=== PATIENT | female | born 1960 | race Caucasian/White ===

== ENCOUNTER 2018-11-06 09:14 | Day surgery (SDC) | payer BC ==
[~2018-11-06 09:14] MED LIST: Lactated Ringers 1,000 ML IV SCH; Lidocaine 1%/Sod Bicarbonate in NS 8.4% 1 ML Syringe IDERM PRN; Sodium Chloride 0.9% 10 ML Syringe FLUSH PRN
--- NOTE | 2018-11-06 09:39 | PCM.PREANE ---
Preanesthetic Assessment - Anesthesia/Transfusion/Family Hx Anesthesia History: Prior Anesthesia Reaction (nausea) Family History of Anesthesia Reaction: No Transfusion History: No Prior Transfusion(s) - Review of Systems General: No Symptoms Pulmonary: No Symptoms Cardiovascular: No Symptoms Gastrointestinal: No Symptoms Neurological: No Symptoms Other: Reports: Thyroid Problems - Physical Assessment NPO Status Date: 11/05/18 NPO Status Time: 00:00 Pulse: 83 O2 Sat by Pulse Oximetry: 96 Respiratory Rate: 16 Blood Pressure: 147/74 Temperature: 36.8 C Height: 1.65 m Weight: 76.385 kg ASA Class: 2 Mental Status: Alert & Oriented x3 Airway Class: Mallampati = 3 Dentition: Reports: Normal Dentition Thyro-Mental Finger Breadths: 3 Mouth Opening Finger Breadths: 2 ROM/Head Extension: Full Lungs: Clear to Auscultation, Normal Respiratory Effort Cardiovascular: Regular Rate, Regular Rhythm - Allergies Allergies/Adverse Reactions: Allergies Allergy/AdvReac Type Severity Reaction Status Date / Time No Known Allergies Allergy Verified 11/05/18 10:35 - Blood Blood Available: No Product(s) Available: None - Anesthesia Plan Pre-Op Medication Ordered: None - Acknowledgements Anesthesia Type Planned: MAC Pt an Appropriate Candidate for the Planned Anesthesia: Yes Alternatives and Risks of Anesthesia Discussed w Pt/Guardian: Yes Pt/Guardian Understands and Agrees with Anesthesia Plan: Yes PreAnesthesia Questionnaire HEENT History: Reports: Sinusitis, Other (See Below) Other HEENT History: Impacted cerumen Cardiovascular History: Reports: High Cholesterol, Hypertension Respiratory History: Reports: Other (See Below) Other Respiratory History: Recurrent cough Gastrointestinal History: Reports: Cholelithiasis, GERD, Other (See Below) Other Gastrointestinal History: Fatty liver disease, elevated liver function tests Genitourinary History: Reports: None [employer]NA[employer] History: Reports: Other OB/BYN History: tubal ligation, D&C Musculoskeletal History: Reports: Other (See Below) Other Musculoskeletal History: Right hand mallet finger, left finger fracture, left shoulder pain, left rotator cuff tendonitis Neurological History: Reports: Other (See Below) Other Neuro History: Herniated disk Psychiatric History: Reports: None Endocrine/Metabolic History: Reports: Diabetes, Type II, Hypothyroidism Hematologic History: Reports: None Immunologic History: Reports: None Oncologic (Cancer) History: Reports: None Dermatologic History: Reports: Other (See Below) Other Dermatologic History: Rash, spongiotic psoriaform dermatitis, tinea corposis - Infectious Disease History Infectious Disease History: Reports: None - Past Surgical History Head Surgeries/Procedures: Reports: None HEENT Surgical History: Reports: None Cardiovascular Surgical History: Reports: None Respiratory Surgical History: Reports: None GI Surgical History: Reports: None Female Surgical History: Reports: D&C, Tubal Ligation Endocrine Surgical History: Reports: None Neurological Surgical History: Reports: Lumbar Spine Musculoskeletal Surgical History: Reports: None Oncologic Surgical History: Reports: None Dermatological Surgical History: Reports: None - SUBSTANCE USE Smoking Status *Q: Former Smoker Tobacco Use Within Last Twelve Months: No Second Hand Smoke Exposure: No Recreational Drug Use History: No - HOME MEDS Home Medications: Home Meds Irbesartan/Hydrochlorothiazide [Irbesartan-Hctz 300-12.5 mg Tb] 1 tab PO DAILY 11/23/15 [History] Benzonatate 200 mg PO TID PRN 11/05/18 [History] Clobetasol [Clobetasol Propionate 0.05%] 1 applic TOP DAILY 11/05/18 [History] Fluticasone Propionate [Flonase] 1 spray NS DAILY PRN 11/05/18 [History] Levothyroxine 112 mcg PO ACBREAKFAST 11/05/18 [History] Loratadine [Claritin] 10 mg PO DAILY PRN 11/05/18 [History] Triamcinolone Acetonide [Triamcinolone Acetonide 0.1% Crm] 1 applic TOP DAILY [History] atorvaSTATin [Lipitor] 10 mg PO DAILY 11/05/18 [History] - CURRENT (IN HOUSE) MEDS Current Meds: Current Medications Lactated Ringer's (Ringers, Lactated) 1,000 mls @ 125 mls/hr IV ASDIRECTED ROEL Stop: 11/06/18 23:00 Lidocaine/Sodium Bicarbonate (Buffered Lidocaine 1% In Ns 8.4%) 0.25 ml IDERM ONETIME PRN PRN Reason: Prior to IV Start Stop: 11/06/18 18:00 Sodium Chloride (Saline Flush) 10 ml FLUSH ASDIRECTED PRN PRN Reason: Keep Vein Open Stop: 11/06/18 18:00
[2018-11-06] MEDS ORDERED: Propofol 200 MG/20 ML SDV ONE ×3 (10:04→10:58)
[2018-11-06] MEDS ORDERED: Lidocaine 1% 4 ML ONE (10:04)
[2018-11-06] MEDS ORDERED: fentaNYL 100 MCG/2 ML SDV ONE (10:18)
[2018-11-06 11:33] VITALS: BP 128/65
--- NOTE | 2018-11-06 13:47 | OR ---
DATE OF OPERATION: 11/06/2018 SURGEON: José Rey MD PREOPERATIVE DIAGNOSIS: Positive Cologuard, DNA screen. POSTOPERATIVE DIAGNOSIS: 1. Positive Cologuard, DNA screen. 2. Multiple polyps too numerous to count. All of these appear to be hyperplastic in nature. OPERATION PERFORMED: Diagnostic colonoscopy and snare polypectomy, biopsy forceps polypectomy. FINDINGS: Polyps too numerous to count. All of these appear to be hyperplastic. She had an excellent bowel prep. ANESTHESIA: Monitored anesthesia care. ESTIMATED BLOOD LOSS: Minimal. COMPLICATIONS: None. DISPOSITION: Stable at the end of procedure. PATHOLOGY: 1. Rectosigmoid junction polyps x3. 2. Descending colon polyps x2. 3. Transverse colon polyps x2. 4. Descending colon polyp x1. 5. Rectosigmoid junction polyp. 6. Rectal polyp. INDICATION: Indira is a 58-year-old female who has never had a colonoscopy. She was sent for Cologuard screening. This turned up positive. She was referred for colonoscopy. She was fully informed of the major risks, benefits, and alternatives. The risks include, but are not limited to perforation of the colon, bleeding, the risks of anesthesia, and the possibility of further surgery. She gave informed consent. DESCRIPTION OF PROCEDURE: Digital rectal exam was performed with copious lubrication. I introduced the colonoscope into the rectum. I advanced the scope to the cecum and keeping the lumen in view at all times, I identified a cluster of hyperplastic polyps at the rectosigmoid junction. I sampled these polyps. Three polyps were removed and sent to pathology for further examination. Multiple additional polyps were identified, 2 of these were removed with a snare with electrocautery. The cecum was identified and documented photographically. The examination lasted more than 15 minutes. Polyps were removed as they were identified. At the end of the procedure, the scope was withdrawn. She was awakened from anesthesia and moved to recovery in stable condition. PLAN: I will follow up on the pathology. If any of these are adenomas, I feel reassured. However, because of the number of polyps, an additional colonoscopy was probably warranted within the next year or so for sampling error. MMODAL /[id number]
== END 2018-11-06 11:30 | disposition home or self-care (01) ==
LOC: JD.SDS 09:14
PROVIDERS: ATTEND Surgery
DX: K63.5 Polyp of colon (principal); K62.1 Rectal polyp; I10 Essential (primary) hypertension; E78.2 Mixed hyperlipidemia; E03.9 Hypothyroidism, unspecified; K21.9 Gastro-esophageal reflux disease without esophagitis; K76.0 Fatty (change of) liver, not elsewhere classified; Z79.899 Other long term (current) drug therapy; Z87.891 Personal history of nicotine dependence; Z13.79 Encounter for other screening for genetic and chromosomal anomalies
CPT/HCPCS: 00811; J2001; J2704; J3010; J7120